=== PATIENT | male | born 1960 | race Caucasian/White ===

== ENCOUNTER 2016-09-06 09:09 | Emergency (ER) | payer BC ==
[2016-09-06] MEDS ORDERED: COZAAR50 M1 PO (09:14)
[2016-09-06] MEDS ORDERED: VITAMIN D31000 UNI3 PO (09:25)
[2016-09-06] MEDS ORDERED: FOLIC ACID1 M1 PO (09:25)
[2016-09-06 09:27] LABS: BASO % 0.3 % (0-2); EOSINOPHIL ABSOLUTE COUNT 0.1 tho/cmm (0.0-0.7); HCT-HEMATOCRIT 48.2 % (36.0-53.5); HGB-HEMOGLOBIN 16.2 gm/dl (13.5-17.0); IMMATURE GRANULOCYTES ABSOLUTE 0.01 tho/cmm (0-0.03); IMMATURE GRANULOCYTES PERCENT 0.2 % (0-0.3); LYMPH % 26.1 % (20-45); LYMPH ABSOLUTE COUNT 1.6 tho/cmm (0.8-4.5); MCH (MEAN CORPUSCULAR HGB) 29.3 pg (28.0-32.0); MCHC MEAN CORPUSCULAR HGB CONC 33.6 % (32.0-36.0); MCV (MEAN CELL VOLUME) 87.3 fl (82.0-96.0); MEAN PLATELET VOLUME 10.8 cmc (9.4-12.4); MONO % 8.7 % (0-12); MONOCYTE ABSOLUTE COUNT 0.5 tho/cmm (0.0-1.2); NEUTROPHIL ABSOLUTE COUNT 3.9 tho/cmm (1.6-8.0); NEUTROPHIL-AUTOMATED 3.9 tho/cmm (1.6-8.0); NEUTROPHILS % 63.7 % (40-80); PLATELET COUNT 248 tho/cmm (150-450); RED BLOOD COUNT 5.52 mil/cmm (4.40-5.70); RED CELL DISTRIBUTION WIDTH 13.7 % (12.4-16.4); WHITE BLOOD COUNT 6.1 tho/cmm (4.0-10.0)
[2016-09-06 09:42] LABS: ANION GAP 10 mmol/L (0-20); BLOOD UREA NITROGEN 17 mg/dl (6-24); CALCIUM 9.2 mg/dl (8.5-10.5); CARBON DIOXIDE-VENOUS 29 mmol/L (22-32); CHLORIDE 106 mmol/l (96-110); CREATININE 1.22 mg/dl (0.60-1.30); GLUCOSE 97 mg/dL (70-110); SODIUM 141 mmol/L (135-145); eGFR VALUE FOR BLACK 76 mL/Min
[2016-09-06 10:27] LABS: POTASSIUM 4.3 mmol/L (3.7-5.1)
== END 2016-09-06 11:12 ==
LOC: EDMED 09:09
PROVIDERS: Emergency Medicine
DX: R07.89 Other chest pain (principal); I10 Essential (primary) hypertension